=== PATIENT | female | born 1985 | race Caucasian/White ===

== ENCOUNTER 2018-09-17 15:18 | Emergency (ER) | payer SELFPAY ==
[~2018-09-17 15:18] MED LIST: BENZ-17 PO; GUAI5SYR PO; LEVO112T2 PO; LEVO750T26 PO
--- NOTE | 2018-09-17 15:25 | NUR ---
NO ANSWER IN LOBBY.
--- NOTE | 2018-09-17 15:39 | NUR ---
NO ANSWER IN LOBBY.
--- NOTE | 2018-09-17 15:50 | NUR ---
NO ANSWER IN LOBBY. ASSUMING PATIENT ELOPED.
== END 2018-09-17 15:52 | disposition left against medical advice (07) ==
LOC: ED 15:46
DX: R10.9 Unspecified abdominal pain (principal); Z53.21 Procedure and treatment not carried out due to patient leaving prior to being seen by health care provider

== ENCOUNTER 2019-07-28 12:07 | Emergency (ER) | payer OTHER ==
[~2019-07-28] VITALS: Ht 165.1 cm; Wt 118.5 kg
[2019-07-28 12:13] VITALS: BP 154/78
[2019-07-28] MEDS ORDERED: DIAZEPAM 5 MG TABLET ONE (12:41)
[2019-07-28] MEDS ORDERED: KETOROLAC 60 MG/2 ML ONE (12:41)
[2019-07-28] MEDS ORDERED: HYDROmorphone 1 MG/ML, 1ML INJ ONE (12:42)
[2019-07-28] MEDS ORDERED: KETOROLAC 30 MG/1 ML IM ONE (13:00)
[2019-07-28] MEDS ORDERED: DIAZEPAM 5 MG TABLET PO ONE (13:00)
[2019-07-28] MEDS ORDERED: HYDROmorphone 2 MG/ML, 1ML IM ONE (13:00)
[2019-07-28] MEDS ORDERED: ONDANSETRON ODT 4 MG PO ONE (14:00)
[2019-07-28] MEDS ORDERED: ONDANSETRON ODT 4 MG ONE (14:06)
== END 2019-07-28 14:48 | disposition home or self-care (01) ==
LOC: ED 13:21
DX: M54.5 Low back pain (principal); E03.9 Hypothyroidism, unspecified
CPT/HCPCS: 96372; 99284; J1170; J1885; Q0162

== ENCOUNTER 2019-10-15 21:47 | Emergency (ER) | payer OTHER ==
[~2019-10-15] VITALS: Ht 162.6 cm; Wt 105.7 kg
[2019-10-15] MEDS ORDERED: SODIUM CHLORIDE 0.9% 1,000 ML IV ONE (22:03)
[2019-10-15] MEDS ORDERED: ONDANSETRON 2MG/ML, 2ML ONE (22:08)
[2019-10-15] MEDS ORDERED: MORPHINE SULFATE 4 MG/ML, 1ML ONE (22:09)
[2019-10-15 22:18] LABS: BASOPHILS # (AUTO) 0.07 x10^3/uL (0-0.1); BASOPHILS % (AUTO) 1 % (0-1); EOSINOPHILS # (AUTO) 0.29 x10^3/uL (0-0.4); EOSINOPHILS % (AUTO) 4 % (1-7); LYMPHOCYTES # (AUTO) 3.45 x10^3/uL (1-3.4); LYMPHOCYTES % (AUTO) 46 % (22-44); MD NO; MEAN CORPUSCULAR HEMOGLOBIN 27.7 pg (27.0-34.8); MEAN CORPUSCULAR HGB CONC 32.6 g/dL (32.4-35.8); MEAN CORPUSCULAR VOLUME 85.1 fL (80-100); MEAN PLATELET VOLUME 8.5 fL (7.4-10.4); MONOCYTES # (AUTO) 0.63 x10^3/uL (0.2-0.8); MONOCYTES % (AUTO) 8 % (2-9); NEUTROPHILS % (AUTO) 41 % (42-75); PLATELET COUNT 353 x10^3/uL (130-400); RED BLOOD COUNT 4.64 x10^6/uL (3.82-5.3); RED CELL DISTRIBUTION WIDTH 15.9 % (9.6-15.2)
[2019-10-15 22:22] VITALS: BP 134/88
[2019-10-15 22:30] LABS: ALANINE AMINOTRANSFERASE 27 U/L (12-78); ALBUMIN 3.2 g/dL (3.4-5.0); ANION GAP 7 mmol/L (5-15); CALCIUM 8.5 mg/dL (8.5-10.1); CHLORIDE 112 mmol/L (98-107); CREATININE 0.71 mg/dL (0.55-1.02)
[2019-10-15] MEDS ORDERED: MORPHINE SULFATE 4 MG/ML, 1ML IVPush PRN (22:30)
[2019-10-15] MEDS ORDERED: SODIUM CHLORIDE FLUSH 10ML SYR IVF ONE (22:30)
[2019-10-15] MEDS ORDERED: ONDANSETRON 2MG/ML, 2ML IVPush ONE (22:30)
--- NOTE | 2019-10-15 22:30 | NUR ---
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 PT STS THE PAIN HAS BEEN WORSENING FOR PAST FEW DAYS. NOW RADIATES TO BACK. PT EDUCATED ON NEED FOR URINE SAMPLE STS "I DON'T REALLY PEE." PT ASKED ABOUT LAST BM PT STS "I DON'T REALLY DO THAT EITHER JUST LIKE MAYBE ONCE A WEEK OR LESS." PT CONNECTED TO MONITORING VSS NADN
[2019-10-15 22:35] LABS: ALKALINE PHOSPHATASE 58 U/L (45-117); BILIRUBIN,TOTAL 0.2 mg/dL (0.2-1.0); TOTAL PROTEIN 7.3 g/dL (6.4-8.2)
[2019-10-15] MEDS ORDERED: OMNIPAQUE 350 MG/ML, 100ML BOTTLE ONE (23:35)
--- NOTE | 2019-10-15 23:35 | NUR ---
URINE SENT TO LAB
[2019-10-15 23:43] LABS: MICROSCOPIC NOT IND
== END 2019-10-16 01:10 | disposition home or self-care (01) ==
LOC: ED 10-16 00:01
DX: R10.12 Left upper quadrant pain (principal); G89.18 Other acute postprocedural pain; R11.2 Nausea with vomiting, unspecified; E66.9 Obesity, unspecified; Z68.41 Body mass index [BMI] 40.0-44.9, adult
CPT/HCPCS: 36415; 74177; 80053; 81003; 83690; 84703; 85025; 96361; 96374; 96375; 99285; J2270; J2405; J7030; Q9967